=== PATIENT | male | born 1960 | race Caucasian/White ===

== ENCOUNTER 2019-04-13 05:57 | Day surgery (SDC) | payer OTHER, SELFPAY ==
[2019-04-12 12:42] VITALS: BMI 30.5
[2019-04-13 06:19] VITALS: BP 141/104; PULSE 74; RESP 20; TEMP 36.4; O2SAT 99
[2019-04-13] MEDS: sodium chloride 0.9% 1,000 ML 30 ML (06:25)
--- NOTE | 2019-04-13 06:52 | P.ANESASSM_ITS ---
Pre-Anesthetic Assessment Pre-Anesthetic Assessment: Height/Weight: Height 1.7 m Weight 88.451 kg Temp Pulse Resp BP Pulse Ox 97.6 F 74 20 H 141/104 99 04/13/19 06:19 04/13/19 06:19 04/13/19 06:19 04/13/19 06:19 04/13/19 06:19 Proposed Procedure: Operation Date: 04/13/19 07:00 Proposed Procedures p Colonoscopy(Not Applicable) - Bravo Cox MD Was [place] taken within 24 hours: Yes Last intake: Intake Last Liquid Date 04/12/19 Last Liquid Time 16:00 Last Solid Date 04/11/19 Last Solid Time 19:00 Social: Social History: Alcohol and No tobacco Exam: Pre-Anes Outpt Exam: alert, clear to auscultation bilaterally and re gular rate & rhythm Airway: Submandibular: WNL Cervical ROM: WNL MP: 2 Dentition: Full History/ROS: No significant history except as noted and No significant complaints Pulmonary: Pulmonary: None reported CV/HEM: CV/HEM: HTN : : None reported Hepatic: Hepatic: None reported GI: GI: None reported Metabolic: Metabolic: None reported Musc/skel: Musc/skel: None reported Neuropsych: Neuropsych: None reported Anesthetic Plan: ASA status: 2 Anesthesia: Anesthesia Evaluation and MAC Risk of > 500 ml blood loss (7ml/kg in children): No Data Anesthesia Cardiac Studies: No Data to Display
--- NOTE | 2019-04-13 06:57 | PM.HP ---
Providers/Chief Complaint Primary Care Provider: Pito Graandos MD History of Present Illness NAZIA CARDOZA is a 58 year old male who presents for a repeat colonoscopy due to having colon polyps removed in the past. His previous colonoscopy was at [place]. His prep last night was appropriate. He has no further concerns and wishes to proceed. Review of Systems General: Reports: 10 or more systems reviewed and unremarkable except in HPI and below Const: Denies: fever Card: Denies: chest pain or irregular heart rhythm Resp: Denies: shortness of breath Medications/Allergies Home Medications Medication Instructions Recorded Confirmed Last Taken Type atorvastatin 10 mg PO DAILY 04/12/19 04/12/19 1 Day Ago History ~04/12/19 cholecalciferol (vitamin D3) 2,000 unit PO DAILY 04/12/19 04/12/19 1 Day Ago History [Vitamin D3] ~04/12/19 loratadine 10 mg PO DAILY 04/12/19 04/12/19 1 Day Ago History ~04/12/19 metoprolol tartrate 50 mg PO DAILY 04/12/19 04/12/19 04/13/19 05:30 History multivitamin 1 cap PO DAILY 04/12/19 04/12/19 1 Day Ago History ~04/12/19 pantoprazole 40 mg PO DAILY 04/12/19 04/12/19 1 Day Ago History ~04/12/19 tamsulosin 0.4 mg PO DAILY 04/12/19 04/12/19 1 Day Ago History ~04/12/19 Allergies Allergy/AdvReac Type Severity Reaction Status Date / Time No Known Allergies Allergy Verified 04/12/19 12:37 PFSH Acute PFSH: Medical History (Updated 04/13/19 @ 07:01 by Bravo Cox MD) Hyperlipemia Hypertension Vitals/I&O/Wt Last Vital Signs Temp 97.6 F 04/13/19 06:19 Pulse 74 04/13/19 06:19 Resp 20 H 04/13/19 06:19 BP 141/104 04/13/19 06:19 Pulse Ox 99 04/13/19 06:19 Weight last 48 hrs Weight 195 lb Physical Exam Const: COMMON NORMALS: no apparent distress and oriented x3 GENERAL APPEARANCE: cooperative, comfortable and well developed HENMT: COMMON NORMALS: normocephalic and moist oral mucous membranes HEAD & SCALP: normocephalic Chest: COMMONS NORMALS: inspection of chest normal Resp: COMMON NORMALS: normal respiratory effort and clear to auscultation bilaterally AUSCULTATION: clear to auscultation bilaterally Cardio: COMMON NORMALS: regular rate, regular rhythm, no gallops, no murmurs and no rub RATE: regular rate RHYTHM: regular rhythm Extremity: COMMON NORMALS: normal to inspection Neuro: COMMON NORMALS: oriented x3 and no focal motor deficits Skin: COMMON NORMALS: no rashes or lesions noted GENERAL SKIN EXAM: no rashes or lesions noted A&P Assessment and plan (1) History of colon polyps: We have discussed the risks of bleeding, perforation, and sedation. He has no further questions and wishes to proceed. Status: Acute Code(s): Z86.010 - Personal history of colonic polyps Attestations Medical Necessity Statement*: Outpatient colonoscopy Coding Level of Care Code Acute Algologist for [place] Diagnoses History of colon polyps Z86.010
[2019-04-13 07:21] VITALS: BP 83/63; PULSE 67; RESP 16; TEMP 36.2; O2SAT 98
[2019-04-13 07:27] VITALS: BP 95/79; PULSE 70; RESP 18; O2SAT 99
== END 2019-04-13 07:37 | disposition home or self-care (01) ==
PROVIDERS: PCP Family Medicine; Visit Provider Family Medicine
PROC: 0DJD8ZZ Inspection of Lower Intestinal Tract, Via Natural or Artificial Opening Endoscopic (ICD-10-PCS; CPT 45378; principal; 2019-04-13 07:00)
DX: K63.5 Polyp of colon (principal); Z86.010 Personal history of colon polyps; E78.5 Hyperlipidemia, unspecified; I10 Essential (primary) hypertension; K64.8 Other hemorrhoids
CPT/HCPCS: 12345; 45384; 88305; J2001; J2704; J7030

== ENCOUNTER → 2021-07-31 12:45 | Outpatient (BNVA) | payer OTHER, SELFPAY | PROVIDERS: PCP Family Medicine; Visit Provider Family Medicine | DX: E78.00 Pure hypercholesterolemia, unspecified (principal); K21.9 Gastro-esophageal reflux disease without esophagitis; I10 Essential (primary) hypertension | CPT/HCPCS: 80053; 80061 ==

== ENCOUNTER → 2023-02-18 08:22 | Outpatient (BNVA) | payer OTHER, SELFPAY | PROVIDERS: PCP Family Medicine; Visit Provider Family Medicine | DX: I10 Essential (primary) hypertension (principal); E78.5 Hyperlipidemia, unspecified; N40.0 Benign prostatic hyperplasia without lower urinary tract symptoms | CPT/HCPCS: 80053; 80061; 84153 ==

== ENCOUNTER 2023-07-08 10:29 | Outpatient (CLI) | payer OTHER, SELFPAY ==
--- NOTE | 2023-07-08 10:45 | US_ITS ---
WS: [id number] THYROID ULTRASOUND HISTORY: thyroid nodule COMPARISON: None available. Right lobe: 1.0 cm x 1.7 cm x 3.2 cm (w x ap x l). Volume: 2.6 cm3. Normal size and echotexture. No significant are dominant nodules are present. Left lobe: 1.4 cm x 1.9 cm x 3.7 cm (w x ap x l). Volume: 4.8 cm3. Normal sized gland. Spongiform nodule in the superior pole measures 0.7 x 0.5 x 0.9 cm. There is no s olid dominant mass or nodule. No echogenic foci. Isthmus: 0.4 cm. US/US thyroid [id number] IMPRESSION: 1. TI-RADS 2; LEFT thyroid nodule. No FNA or follow-up ultrasound recommended as per TI-RADS criteria. 2. Negative RIGHT thyroid.
== END 2023-07-08 10:30 | disposition home or self-care (01) ==
PROVIDERS: PCP Family Medicine; Visit Provider Family Medicine
DX: E04.1 Nontoxic single thyroid nodule (principal)
CPT/HCPCS: 76536

== ENCOUNTER → 2023-08-09 09:08 | Outpatient (BNVA) | payer OTHER, SELFPAY | PROVIDERS: PCP Family Medicine; Visit Provider Family Medicine | DX: R30.0 Dysuria (principal) | CPT/HCPCS: 81000; 87086 ==

== ENCOUNTER 2024-11-16 20:14 | Emergency (ER) | payer OTHER, SELFPAY ==
[2024-11-16 20:15] VITALS: BP 119/79; PULSE 91; RESP 17; TEMP 36.8; O2SAT 95; BMI 30.5
--- NOTE | 2024-11-16 20:17 | CTR_ITS ---
PROCEDURE INFORMATION: Exam: CT Abdomen And Pelvis With Contrast Exam date and time: 11/16/2024 9:10 PM Age: 64 years old Clinical indication: Abdominal pain; Localized; Lower; Additional info: Abd pain fever TECHNIQUE: Imaging protocol: Computed tomography of the abdomen and pelvis with contrast. Radiation optimization: All CT scans at this facility use at least one of these dose optimization techniques: automated exposure control; mA and/or kV adjustment per patient size (includes targeted exams where dose is matched to clinical indication); or iterative reconstruction. Contrast material: OMNIPAQUE 350; Contrast volume: 100 ml; Contrast route: INTRAVENOUS (IV); COMPARISON: No relevant prior studies available. RADIATION DOSE METRICS: Total DLP (mGy-cm): 732.87 FINDINGS: Lungs: Bibasilar atelectasis. Diaphragm: Moderate hiatal hernia. Liver: Normal. No mass. Gallbladder and biliary ducts: Normal. No calcified stones. No ductal dilation. Pancreas: Normal. No ductal dilation. Spleen: Punctate calcifications in the splenic parenchyma which can be related to prior granulomatous infection. Adrenal glands: Normal. No mass. Kidneys and ureters: Simple cysts in both kidneys. Right-sided nephrolithiasis measuring up to 5 mm. No chasidy hydronephrosis or hydroureter on either side. Stomach and bowel: Uncomplicated diverticulitis involving the proximal sigmoid colon. No abscess or perforation. Appendix: No evidence of appendicitis. Intraperitoneal space: Unremarkable. No free air. No significant fluid collection. Vasculature: Unremarkable. No abdominal aortic aneurysm. Lymph nodes: Unremarkable. No enlarged lymph nodes. Urinary bladder: Unremarkable as visualized. Reproductive: Unremarkable as visualized. Bones/joints: Mild degenerative arthritis thoracolumbar spine. Soft tissues: Unremarkable. CT/CT abdomen pelvis w con* [id number] IMPRESSION: 1. Uncomplicated diverticulitis involving the proximal sigmoid colon. No abscess or perforation. 2. Moderate hiatal hernia. COMMENTS: Consistent with the [employer]'s Incidental Findings Committee white paper (J Am Frances Radiol 2018): Any incidental renal lesion less than 1 cm or classified as too small to characterize, or any incidental cystic renal lesion characterized as simple-appearing, is likely benign. No follow-up imaging is recommended for these lesions per consensus recommendations based on imaging criteria.
[2024-11-16 20:42] LABS: Hematocrit 42.8 % (37-53); Hemoglobin 14.90 g/dL (11.27-16.99); Mean Corpuscular HGB Conc 34.8 g/dL (30-55); Mean Corpuscular Hemoglobin 31.3 pg (27-33); Mean Corpuscular Volume 89.9 fl (82-101); Nucleated Red Blood Cells % 0 %; Platelet Count 149 10^3/cmm (157-399); Red Blood Count 4.76 10^6/uL (3.85-5.65); White Blood Count 13.68 10^3/uL (3.29-11.43)
[2024-11-16 20:56] LABS: Glucose Urine UA Negative (Normal); Nitrate Urine Negative (Negative)
[2024-11-16 21:02] LABS: Lactic Sepsis W/Reflex 0.9 mmol/L (0.5-2.2)
[2024-11-16 21:03] LABS: Alanine Aminotransferase 23 U/L (0-41); Albumin Level 4.1 g/dL (3.5-5.2); Alkaline Phosphatase 69 U/L (40-130); Anion Gap 17.8 (5-19); Aspartate Amino Transferase 29 U/L (0-40); Blood Urea Nitrogen 14 mg/dL (8-23); Calcium 9.2 mg/dL (8.5-10.5); Carbon Dioxide 22 mmol/L (22-29); Chloride 103 mmol/L (98-107); Creatinine Clr Calc Pharmacy 86.8523; Globulin 2.8 g/dL (1.3-4.6); Glucose 111 mg/dL (65-115); Lipase 20 U/L (13-60); Osmolality Calculated 289 mOsm/kg (285-295); Potassium 3.8 mmol/L (3.5-5.1); Sodium 139 mmol/L (136-145); Total Protein 6.9 g/dL (6.6-8.7)
[2024-11-16] MEDS: iohexol 350 mg/mL 500 mL Btl (per mL) IV (21:14)
[2024-11-16 21:33] LABS: Specific Gravity, Urine 1.036 (1.005-1.030)
[2024-11-16 21:35] LABS: Add Urine Microscopic? YES; UA Manual Slide Review YES
[2024-11-16 22:08] VITALS: BP 114/74; PULSE 72; RESP 16; O2SAT 96
--- NOTE | 2024-11-16 22:32 | ED_ITS ---
HPI - Abdominal Pain 2 General: Chief Complaint: Abdominal Pain Stated Complaint: High Fever, severe abd pain Time Seen by Provider: 11/16/24 22:03 History of Present Illness: Patient is a male presenting with left lower quadrant abdominal pain that began this morning. He describes the pain as constant rather than intermittent, primarily located in the left lower quadrant below the umbilicus. The patient reports a history of stomach flu on Tuesday and Tuesdaywith violent vomiting and diarrhea. He had some diarrhea this morning but denies any blood in the stool. He denies vomiting today. 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 The patient took Tylenol and Pepto Bismol at home for symptom management with minimal relief. He has a significant history of acid reflux, though this has reportedly improved following a prior esophageal surgery. Related Data Home Medications ?Medication ?Instructions ?Recorded ?Confirmed cholecalciferol (vitamin D3) 50 2,000 unit PO DAILY 08/09/23 mcg (2,000 unit) capsule (Vitamin D3) loratadine 10 mg tablet 10 mg PO DAILY 04/12/1904/02 multivitamin 1 cap PO DAILY 04/12/1904/02 Previous Rx's ?Medication ?Instructions ?Recorded atorvastatin 10 mg tablet See Rx Instructions .Route 1 03/18/23 .COMPLEX #90 tabs metoprolol tartrate 100 mg tablet See Rx Instructions .Route 01/16/24 .COMPLEX #180 tabs tamsulosin 0.4 mg capsule See Rx Instructions .Route 1 03/18/23 .COMPLEX #90 caps betamethasone dipropionate 0.05 % See Rx Instructions .Route 03/12/24 topical cream .COMPLEX #45 grams pantoprazole 40 mg tablet,delayed See Rx Instructions .Route 04/14/24 release .COMPLEX #90 tabs terazosin 2 mg capsule See Rx Instructions .Route 0 07/10/24 .COMPLEX #90 caps ciprofloxacin HCl 500 mg tablet 500 mg PO Q12H #7 tabs 11/16/24 metronidazole 500 mg tablet 500 mg PO Q8H 7 days #21 t abs 11/16/24 ondansetron 4 mg disintegrating 4 mg PO Q6H PRN nausea and 11/16/24 tablet vomiting #14 tabs oxycodone-acetaminophen 7.5 mg-325 1 tab PO Q6H PRN pa in #10 tabs 11/16/24 mg tablet (Percocet) Allergies Allergy/AdvReac Type Severity Reaction Status Date / Time No Known Allergies Allergy Verified 11/16/24 20:20 PFSH ED 2 PFSH: Medical History Thyroid nodule incidental finding on [facility] screening test Hyperlipemia Hypertension Social History Smoking and tobacco/nicotine status: unknown if used tobacco/nicotine Physical Exam 2 Const: GENERAL APPEARANCE: cooperative and ill appearing (Mildly); not frail appearing HENMT: COMMON NORMALS: normocephalic, atraumatic and Normal external nose present HEAD & SCALP: normocephalic and atraumatic FACE & SINUS: normal facial exam and face symmetric NOSE: Normal external nose present Eye: COMMON NORMALS: Equal, round and reactive pupils present and EOMs intact bilaterally PUPIL: Yes Equal, round and reactive pupils present Neck/C-Spine: GENERAL: Yes trachea midline Chest: CHEST: Yes Symmetrical chest wall rise Resp: COMMON NORMALS: normal respiratory effort, No retractions, No use of accessory muscles and clear to auscultation bilaterally AUSCULTATION: clear to auscultation bilaterally Cardio: COMMON NORMALS: regular rate and regular rhythm RATE: regular rate RHYTHM: regular rhythm GI: COMMON NORMALS: Normal to inspection, nondistended, normoactive bowel sounds present PALPATION: Yes Tenderness to palpation present (GI) Details: LLQ and Yes Guarding due to palpation present (GI) Extremity: COMMON NORMALS: no pedal edema Neuro: [place] COMA SCALE: document GCS findings [place] coma scale eye opening: Spontaneous [place] coma scale verbal response: Orientated [place] coma scale motor response: Obey commands [place] coma scale total score: 15 S ENSORY EXAM: Yes extremities (intact) Psych: COMMON NORMALS: speech normal SPEECH: Yes normal speech Skin: COMMON NORMALS: no rashes or lesions noted GENERAL SKIN EXAM: no rashes or lesions noted Course 2 Vital Signs: Vital signs: Vital Signs Temperature 98.3 F 11/16/24 20:15 Pulse Rate 69 11/16/24 23:56 Respiratory Rate 16 11/16/24 22:08 Blood Pressure 111/67 11/16/24 23:56 Pulse Oximetry 93 11/16/24 23:56 Oxygen Delivery Me thod Room Air 11/16/24 22:08 MDM - Abdominal Pain Medical Decision Making The patient is afebrile here. Vitals are normal. White blood cell count is 13.7. Platelet count 150. CRP is 139. There is hematuria present. Other laboratory not remarkable. CT shows uncomplicated diverticulitis involving the proximal sigmoid. There is no abscess or perforation present. He received metronidazole and Cipro here with some pain medication. He will be sent home on those medications for coverage. He knows to return for worsening symptoms despite this treatment. Currently he is stable for discharge. Outpatient follow-up. Lab Data 11/16/24 20:33 11/16/24 20:33 Labs/Radiology: Radiology Impressions Abdomen/Pelvis CT 11/16/24 20:17 IMPRESSION: 1. Uncomplicated diverticulitis involving the proximal sigmoid colon. No abscess or perforation. 2. Moderate hiatal hernia. COMMENTS: Consistent with the [employer]'s Incidental Findings Committee white paper (J Am Frances Radiol 2018): Any incidental renal lesion less than 1 cm or classified as too small to characterize, or any incidental cystic renal lesion characterized as simple-appearing, is likely benign. No follow-up imaging is recommended for these lesions per consensus recommendations based on imaging criteria. Laboratory Results WBC 13.68 10^3/uL (3.29-11.43) H 11/16/24 20:33 RBC 4.76 10^6/uL (3.85-5.65) 11/16/24 20:33 Hgb 14.90 g/dL (11.27-16.99) 11/16/24 20:33 Hct 42.8 % (37-53) 11/16/24 20:33 MCV 89.9 fl (82-101) 11/16/24 20:33 MCH 31.3 pg (27-33) 11/16/24 20: MCHC 34.8 g/dL (30-55) 11/16/24 20:33 RDW 12.4 % (12.1-15.1) 11/16/24 20:33 Plt Count 149 10^3/cmm (157-399) L 11/16/24 20:33 MPV 9.9 fL (7.4-10.4) 11/16/24 20:33 Neut % (Auto) 85.6 % 11/16/24 20:33 Lymph % (Auto) 7.0 % 11/16/24 20:33 [place] % (Auto) 6.4 % 11/16/24:33 Eos % (Auto) 0.3 % 11/16/24:33 Baso % (Auto) 0.3 % 11/16/24:33 Neut # (Auto) 11.71 10^3/uL (1.8-7.7) H 11/16/24 20:33 Lymph # (Auto) 1.0 10^3/uL (0.8-4.8) 11/16/24: [place] # (Auto) 0.9 10^3/uL (0.2-0.9) 11/16/24: Eos # (Auto) 0.0 10^3/uL (0.0-0.8) 11/16/24: Baso # (Auto) 0.0 10^3/uL (0.0-0.1) 11/16/24 20: Nucleated RBC % (auto) 0 % 11/16/24: Nucleated RBCs # 0.0 /100WBC 11/16/24 20:33 Sodium 139 mmol/L (136-145) 11/16/24:33 Potassium 3.8 mmol/L (3.5-5.1) 11/16/24 20:33 Chloride 103 mmol/L (98-107) 11/16/24: Carbon Dioxide 22 mmol/L (22-29) 11/16/24 20:33 Anion Gap 17.8 (5-19) 11/16/24 20:33 BUN 14 mg/dL (8-23) 11/16/24 20: Creatinine 0.9 mg/dL (0.7-1.2) 11/16/24 20: GFR Calculation 84.7 mL/min (90-130) L 11/16/24 20: Glucose 111 mg/dL (65-115) 11/16/24 20:33 Calculated Osmolality 289 mOsm/kg (285-295) 11/16/24: Lactic Acid 0.9 mmol/L (0.5-2.2) 11/16/24:33 Calcium 9.2 mg/dL (8.5-10.5) 11/16/24 20: Total Bilirubin 1.2 mg/dL (0.15-1.2) 11/16/24 20: AST 29 U/L (0-40) 11/16/24 20: ALT 23 U/L (0-41) 11/16/24 20: Alkaline Phosphatase 69 U/L (40-130) 11/16/24 20: C-Reactive Protein 139.2 mg/L (0.0-4.9) H 11/16/24 20: Total Protein 6.9 g/dL (6.6-8.7) 11/16/24: Albumin 4.1 g/dL (3.5-5.2) 11/16/24: Globulin 2.8 g/dL (1.3-4.6) 11/16/24 20: Lipase 20 U/L (13-60) 11/16/24: Urine Color Dark yellow (Yellow) A 11/16/24 20: Urine Appearance Clear (CLEAR) 11/16/24 20: Urine pH 5.5 (5-7) 11/16/24 20: Ur Specific [place] 1.036 (1.005-1.030) H 11/16/24 20: Urine Protein 1+ (Negative) A 11/16/24: Urine Glucose (UA) Negative (Normal) 11/16/24 20: Urine Ketones Trace (Negative) 11/16/24 20: Urine Blood 2+ (Negative) A 11/16/24: Urine Nitrate Negative (Negative) 11/16/24 20: Urine Bilirubin Negative (Negative) 11/16/24 20: Urine Urobilinogen 1.0 mg/dL (Negative) 11/16/24 20: Ur Leukocyte Esterase Negative (Negative) 11/16/24 20: Urine RBC 40-50 /hpf (0-2) H 11/16/24 20:15 Urine WBC 0-4 /hpf (0-5) H 11/16/24 20:15 Ur Squamous Epith Cells 0-4 /hpf (0-5) H 11/16/24 20: Amorphous Sediment Not Reportable 11/16/24 20:15 Urine Bacteria Trace /hpf (NONE) 11/16/24 20:15 Urine Mucus 2+ /hpf 11/16/24 20:15 All radiology interpretation(s) finalized by discharge Discharge Plan Discharge Patient Disposition: Home Clinical Impression: Diverticulitis Condition: Stable Prescriptions: New oxycodone-acetaminophen [Percocet] 7.5-325 mg tablet 1 tab PO Q6H PRN (Reason: pain) Qty: 10 0RF ondansetron 4 mg tablet,disintegrating 4 mg PO Q6H PRN (Reason: nausea and vomiting) Qty: 14 0RF metronidazole 500 mg tablet 500 mg PO Q8H 7 Days Qty: 21 0RF ciprofloxacin HCl 500 mg tablet 500 mg PO Q12H Qty: 7 0RF Discontinued amoxicillin-pot clavulanate [Augmentin] 500-125 mg tablet 1 tab PO TID Qty: 30 0RF No Action metoprolol tartrate 100 mg tablet See Rx Instructions .ROUTE .COMPLEX Qty: 180 3RF Dose Instruction: TAKE 1 TABLET BY MOUTH TWICE A DAY Rx Instructions: TAKE 1 TABLET BY MOUTH TWICE A DAY tamsulosin 0.4 mg capsule See Rx Instructions .ROUTE .COMPLEX Qty: 90 3RF Dose Instruction: TAKE 1 CAPSULE BY MOUTH EVERY DAY Rx Instructions: TAKE 1 CAPSULE BY MOUTH EVERY DAY atorvastatin 10 mg tablet See Rx Instructions .ROUTE .COMPLEX Qty: 90 3RF Dose Instruction: TAKE 1 TABLET BY MOUTH EVERY DAY Rx Instructions: TAKE 1 TABLET BY MOUTH EVERY DAY betamethasone dipropionate 0.05 % cream See Rx Instructions .ROUTE .COMPLEX Qty: 45 2RF Dose Instruction: APPLY TO AFFECTED AREA TWICE A DAY NEEDED FOR SKIN IRRITATION Rx Instructions: APPLY TO AFFECTED AREA TWICE A DAY NEEDED FOR SKIN IRRITATION pantoprazole 40 mg tablet,delayed release (DR/EC) See Rx Instructions .ROUTE .COMPLEX Qty: 90 3RF Dose Instruction: TAKE 1 TABLET BY MOUTH EVERY DAY Rx Instructions: TAKE 1 TABLET BY MOUTH EVERY DAY terazosin 2 mg capsule See Rx Instructions .ROUTE .COMPLEX Qty: 90 3RF Dose Instruction: TAKE 1 CAPSULE BY MOUTH EVERY DAY Rx Instructions: TAKE 1 CAPSULE BY MOUTH EVERY DAY multivitamin Capsule 1 cap PO DAILY loratadine 10 mg tablet 10 mg PO DAILY cholecalciferol (vitamin D3) [Vitamin D3] 50 mcg (2,000 unit) Capsule 2,000 unit PO DAILY Discharge Orders: Discharge ED (Routine); Ordered 11/16/24 Ordered By: Jaquan Gonzalez Referrals: Pito Granados MD [Primary Care Provider, Family Practice] - 1-3 days Patient Instructions: Diverticulitis (ED), Opioid Safety, Pain Management, Patient Portal & Pablo Instructions Activity Restrictions/Additional Instructions: Return for fever despite 2-3 more doses of antibiotics, worsening pain, vomiting liquids or medications, any other concerning symptoms. 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
[2024-11-16] MEDS: ondansetron 2 mg/ML SDV 2 mL 4 MG IVP (22:54)
[2024-11-16] MEDS: morphine 4 mg/mL SDV 1 mL IVP (22:54)
[2024-11-16 23:56] VITALS: BP 111/67; PULSE 69; O2SAT 93
== END 2024-11-16 23:58 | disposition home or self-care (01) ==
PROVIDERS: Emergency Provider Emergency Medicine; PCP Family Medicine
DX: K57.92 Diverticulitis of intestine, part unspecified, without perforation or abscess without bleeding (principal); E78.5 Hyperlipidemia, unspecified; I10 Essential (primary) hypertension
CPT/HCPCS: 36415; 74177; 80053; 81001; 83605; 83690; 85025; 86140; 87086; 96374; 96375; 99285; J0744; J1885; J2270; J2405; J7030; J9999